=== PATIENT | male | born 1990 | race Caucasian/White ===

== ENCOUNTER 2016-12-28 17:13 | Emergency (ER) | payer SELFPAY ==
[2016-12-28 17:32] VITALS: BP 147/105
--- NOTE | 2016-12-28 18:01 | EDM.PDOC ---
ED HPI GI/ABDOMINAL - General Chief Complaint: Abdominal Pain Stated Complaint: Epigastric pain Time Seen by Provider: 12/28/16 17:45 Source of Information: Reports: Patient, RN notes reviewed History Limitations: Reports: No limitations - History of Present Illness INITIAL COMMENTS - FREE TEXT/NARRATIVE: 26 year old male presents to the ED with two day history of epigastric abdominal pain. The pain does not radiate and is described as intermittent. The pain awoke him from sleep two nights ago. The pain kept him awake and caused him to vomit once. He has had no further nausea or vomiting. No fever, chills, or diarrhea. The pain seems to be worse with greasy foods. He has had a good appetite. He drinks alcohol on a daily basis as well as caffeine and tea. He denies any alcohol since onset of symptoms. He denies tobacco use. No similar symptoms in the past. No previous abdominal surgeries. No history of heart problems. - Related Data Allergies/ADRs: Allergies Allergy/AdvReac Type Severity Reaction Status Date / Time No Known Allergies Allergy Verified 12/28/16 17:32 Home Meds: Home Meds Pantoprazole [ProTONIX] 40 mg PO ACBREAKFAST #14 tab.cr 12/28/16 [Rx] Sucralfate [Carafate] 1 gm PO ASDIRECTED #500 ml 12/28/16 [Rx] Past Medical History - Past Health History Medical/Surgical History: Denies Medical/Surgical History Social & Family History - Tobacco Use Smoking Status *Q: Never Smoker - Alcohol Use Days Per Week of Alcohol Use: 4 Number of Drinks Per Day: 7 Total Drinks Per Week: 28 - Recreational Drug Use Recreational Drug Use: No ED ROS GENERAL - Review of Systems Review Of Systems: See Below Constitutional: Reports: no symptoms. Denies: fever, chills, diaphoresis Respiratory: Reports: No Symptoms. Denies: Shortness of Breath Cardiovascular: Reports: No symptoms. Denies: Chest pain GI/Abdominal: Reports: Abdominal pain, Nausea, Vomiting. Denies: Diarrhea, Hematemesis ED EXAM, GI/ABD - Physical Exam Exam: See Below Exam Limited By: No limitations General Appearance: alert, WD/WN, no apparent distress Respiratory/Chest: no respiratory distress, lungs clear, normal breath sounds, no accessory muscle use, chest non-tender Cardiovascular: normal peripheral pulses, regular rate, rhythm, no murmur GI/Abdominal: normal bowel sounds, soft, non tender, no organomegaly, no distention, no mass. No: guarding, rebound, rigidity, McBurney's sign, Waite' s sign Neurological: alert, oriented, normal cognition Course - Vital Signs Last Recorded V/S: Last Vital Signs Temp 97.9 F 12/28/16 17:30 Pulse 100 12/28/16 17:30 Resp 15 12/28/16 17:30 BP 147/105 H 12/28/16 17:30 Pulse Ox 96 12/28/16 17:30 - Orders/Labs/Meds Labs: Laboratory Tests 12/28/16 12/28/16 12/28/16 Range/Units 18:06 18:06 18:06 WBC 10.25 H (4.23-9.07) K/mm3 RBC 5.25 (4.63-6.08) M/mm3 Hgb 15.9 (13.7-17.5) gm/L Hct 46.4 (40.1-51.0) % MCV 88.4 (79.0-92.2) fl MCH 30.3 (25.7-32.2) pg MCHC 34.3 (32.2-35.5) g/dl RDW Std Deviation 41.0 (35.1-43.9) fL Plt Count 198 (163-337) K/mm3 MPV 11.3 (9.4-12.3) fl Neut % (Auto) 78.1 H (34.0-67.9) % Lymph % (Auto) 13.4 L (21.8-53.1) % Piute % (Auto) 6.9 (5.3-12.2) % Eos % (Auto) 1.3 (0.8-7.0) Baso % (Auto) 0.1 (0.1-1.2) % Neut # (Auto) 8.01 H (1.78-5.38) K/mm3 Lymph # (Auto) 1.37 (1.32-3.57) K/mm3 Piute # (Auto) 0.71 (0.30-0.82) K/mm3 Eos # (Auto) 0.13 (0.04-0.54) K/mm3 Baso # (Auto) 0.01 (0.01-0.08) K/mm3 Sodium 140 (136-145) mEq/L Potassium 4.0 (3.5-5.1) mEq/L Chloride 107 (98-107) mEq/L Carbon Dioxide 26 (21-32) mEq/L Anion Gap 11.0 (5-15) BUN 9 (7-18) mg/dL Creatinine 0.9 (0.7-1.3) mg/dL Est Cr Clr Drug Dosing 132.47 mL/min Estimated GFR (MDRD) > 60 (>60) mL/min BUN/Creatinine Ratio 10.0 L (14-18) Glucose 102 (74-106) mg/dL Calcium 8.7 (8.5-10.1) mg/dL Total Bilirubin 0.8 (0.2-1.0) mg/dL AST 17 (15-37) U/L ALT 44 (16-63) U/L Alkaline Phosphatase 86 (46-116) U/L Total Protein 7.5 (6.4-8.2) g/dl Albumin 3.9 (3.4-5.0) g/dl Globulin 3.6 gm/dL Albumin/Globulin Ratio 1.1 (1-2) Lipase 85 (73-393) U/L H. pylori IgG Antibody Negative (NEGATIVE) - Re-Assessments/Exams Free Text/Narrative Re-Assessment/Exam: CBC, CMP, and lipase are WNL. H Pylori is negative. Physical exam today was unremarkable. The patient's abdomen was non-tender with no peritoneal signs, therefore imaging was not indicated. History and exam is suggestive of gastritis. Will treat for gastritis and refer him to the clinic for follow-up. Educated on return precautions. Discharge instructions as documented. Departure - Departure Time of Disposition: 18:59 Disposition: Home, Self-Care 01 Condition: good Clinical Impression: Gastritis Qualifiers: Gastritis type: unspecified gastritis Chronicity: acute Gastritis bleeding: without bleeding Qualified Code(s): K29.00 - Acute gastritis without bleeding Prescriptions: Pantoprazole [ProTONIX] 40 mg PO ACBREAKFAST #14 tab.cr Sucralfate [Carafate] 1 gm PO ASDIRECTED #500 ml Instructions: Gastritis, Adult, [id number] Referrals: PCP,None [Primary Care Provider] - Forms: ED Department Discharge Additional Instructions: Gastritis Protonix 40mg daily, 30 minutes prior to breakfast each day Carafate 10ml before each meal and at bedtime You can also take Tums, Pepto-bismol, or Tylenol No ibuprofen or aleve Avoid alcohol Avoid all caffeine: coffee, tea, soda pop, and chocolate Avoid all energy drinks Avoid spicy foods, acidic foods (tomatoes, citrus fruits) Call our Medical Clinic to schedule an appointment in 7-10 days for follow-up. Call [phone] Return to ER with worsening of symptoms or change in symptoms
== END 2016-12-28 19:18 | disposition home or self-care (01) ==
LOC: JD.ED 17:13
DX: K29.00 Acute gastritis without bleeding (principal)
CPT/HCPCS: 36415; 80053; 83690; 85025; 86677; 99283; 99284